=== PATIENT | female | born 2005 | race Caucasian/White ===

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

== ENCOUNTER 2024-09-14 07:30 | Outpatient (RCR) | payer MEDICAID, SELFPAY ==
--- NOTE | 2024-08-12 10:28 | OT.OPODN ---
OT Outpatient Ortho Daily Note OT Outpatient Ortho Daily Note* Start: 05/19/24 07:10 Freq: Status: Active Protocol: Document 08/12/24 08:43 AMB (Rec: 08/12/24 10:27 AMB [id number]) E-signed By Joy Jameson, OTR/L, CLT, BIOLOGY RESEARCH ASSISTANT Type of Note Type of Note Type of Note Daily Note,Recert/Progress Note Visit Number 10 Insurance Information Insurance UC[employer] Information Insurance Cert Due 08/17/24 Information Comments Outpatient History/Precautions Current Condition/Medical Diagnosis Referring Provider Dr Clark Medical Diagnoses S62.024 RUE Scaphoid Fracture Treatment Diagnosis R53.1 Weakness RUE M25.631 Stiffness RUE wrist Date of Onset 01/30/25 Medical Conditions Depression,Respiratory Other Conditions Anxiety, ADHD Medical/Functional History Medical History Yes Reviewed Prior Level of Prior to onset of scaphoid fx, pt had full, pain-free Function/Mobility use of her RUE. 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 Pt now has pain with resisted wrist flexion and NOT with resisted wrist extension, also has pain with resisted RD which limits her ability to fully participate in her gym/lifting activities and with lifting/carrying her computer or other heavy items. She rates pain at volar wrist at 3/10, occasional pain in dorsal wrist 2/10. Pt feels therapy has and continues to be helpful as she has less pain following her OT sessions. Pt is hoping that now that she is on summer break, she will have more time to devote to her HEP. OT OP Daily Ortho Note/Assessment Therapeutic Exercise Therapeutic Exercise 08/09/24 Completed wrist strengthening with green TB for Comments wrist flex, ext, and RD 10 reps each, issued green TB for use at home as well. 05/26/24 Provided training and practice in HEP for resisted wrist flex, ext, and RD with red TB. Following demo, pt is able to complete 10 reps of the exs with minimal cues. Pt was provided TB and written instructions for use at home. 05/19/24 Pt was provided training and practice in the following exs. Pt completed 10 reps of each with minimal cues. She was provided with written instructions and teal putty for use at home: Access Code: [email or web address] URL: [email or web address] Date: 05/19/2024 Prepared by: Ana Jameson Exercises - Wrist extensor stretch - 4 x daily - 7 x weekly - 1 sets - 10 reps - 20sec hold - Wrist stretch - 4 x daily - 7 x weekly - 1 sets - 4 reps - 20sec hold - Combo Wrist Stretch - 4 x daily - 7 x weekly - 1 sets - 10 reps - 20sec hold - Seated Wrist Flexion Stretch - 4 x daily - 7 x weekly - 1 sets - 3 reps - 20-30 seconds hold - Seated Wrist Prayer Stretch - 4 x daily - 7 x weekly - 1 sets - 10 reps - 20 sec hold - Tip Pinch with Putty - 2 x daily - 7 x weekly - 1 sets - 10 reps - Dobbins Pinch with Putty - 2 x daily - 7 x weekly - 1 sets - 10-20 reps - Putty Squeezes - 2 x daily - 7 x weekly - 1 sets - 10-20 reps Manual Therapy Manual Therapy 24 Minutes (minutes) Manual Therapy Provided MT with focus on deep STM with MFR to the Comments dorsal forearm and wrist for mm relaxation and release of adhesions in order to promote improved blood flow and increased ROM. TFM over the APL and EPB noting improvement this week in tendon glide and less pain with palpation of these tendons. IASTM with Graston tool in order to promote healing breakdown of scar tissue, reduce adhesions and decrease facial restrictions as well as promoting blood flow and decreased inflammation. Completed wrist joint mobilizations for stretch and mobilization of carpal bones/ligaments. Ultrasound Ultrasound Minutes ( 10 minutes) Ultrasound Location RUE dorsal wrist and forearm for anti-inflammatory and & Joint Position circulatory benefit. Ultrasound Frequency 1 MHz Pulsed & Mode Intensity (w/cm2) 1.5 Iontophoresis Iontophoresis 8 Minutes (minutes) Iontophoresis Radial right wrist for anti-inflammatory benefit in Location order to promote pain reduction and healing. Iontophoresis Extended Wear Patch,Dexamethasone,Instruction In Treatment Parameters Removal,Instruction In Rationale,Instruct Desired & Rational/Set Up Response Splinting Splinting Minutes ( 7 minutes) Splinting Comments Question if pt is experiencing irritation of the APL/ EPB tendons, pt was provided with a semi-custom wrist based thumb spica splint to provide support / rest to this area. Total Occupational Therapy Time Occupational Therapy 42 Minutes Home Program Home Program Home Program Compliant Home Program 06/24/24 Advanced HEP to 3# resistance vs RTB, added Specifics resisted pro/sup as well. 05/26/24 Added resisted wrist flex, ext, and RD with red TB 05/19/24 Pt was provided training and practice in the following exs. Pt completed 10 reps of each with minimal cues. She was provided with written instructions and teal putty for use at home: Access Code: [email or web address] URL: [email or web address] Date: 05/19/2024 Prepared by: Ana Jamseon Exercises - Wrist extensor stretch - 4 x daily - 7 x weekly - 1 sets - 10 reps - 20sec hold - Wrist stretch - 4 x daily - 7 x weekly - 1 sets - 4 reps - 20sec hold - Combo Wrist Stretch - 4 x daily - 7 x weekly - 1 sets - 10 reps - 20sec hold - Seated Wrist Flexion Stretch - 4 x daily - 7 x weekly - 1 sets - 3 reps - 20-30 seconds hold - Seated Wrist Prayer Stretch - 4 x daily - 7 x weekly - 1 sets - 10 reps - 20 sec hold - Tip Pinch with Putty - 2 x daily - 7 x weekly - 1 sets - 10 reps - Dobbins Pinch with Putty - 2 x daily - 7 x weekly - 1 sets - 10-20 reps - Putty Squeezes - 2 x daily - 7 x weekly - 1 sets - 10-20 reps Goniometric Comments Goniometric Comments Goniometric Comments 08/12/24 AROM and strength of BUE is WNL throughout with the exception of RUE wrist, which is as follows: Flexion: 95 on RUE vs 95 on LUE with MMT 5-/5 pain with resisted flexion Extension: 80 on the RUE vs 80 on the LUE with MMT 5-/5 No pain with resistance UD: 40 on the RUE vs 40 on the LUE with MMT 5/5 No pain with resistance RD: 25 on the RUE vs 25 on the LUE with MMT 5-/5 Discomfort with resistance Hand Pinch/Commercial Coordinator Strength Hand Pinch/Commercial Coordinator Strength Hand Pinch/Commercial Coordinator Left Hand,Right Hand Strength Left Hand Commercial Coordinator Strength 110 Position 1 in Elbow Flexion (lbs) Lateral Pinch 20 Strength (lbs) Three Point Pinch ( 21 lbs) Right Hand Commercial Coordinator Strength 100 Position 1 in Elbow Flexion (lbs) Lateral Pinch 20 Strength (lbs) Three Point Pinch ( 20 lbs) Comments Comments 08/12/24 Pt still has pain with vest presser and pinch strength testing, pain is on radial wrist, occasionally dorsal wrist but worse on the volar/radial wrist. OT Objective Data Hand Hand Dominance Right Observations/Posture/Limb Appearance Objective 05/19/24 No deformity noted in RUE, no obvious swelling, Observations no bruising or discoloration. OT Problems Problems Problems Decreased Range of Motion,Pain,Lifting,Gripping, Pinching Other Problems Writing,Opening Containers,Computer Patient Potential Good Assessment Assessment Assessment Pt now demonstrates full, pain-free AROM of her RUE wrist, however, she does have pain with resisted wrist flexion and RD. Pt also demonstrates a 35# increase in right vest presser strength, 4# increased in lateral pinch strength, and 3# increase in 3pt pinch, however, she is still having discomfort with strength testing. Pt also continues to have pain with weight lifting, specifically shoulder press / squats with bar maddox. Currently, pain appears to be associated with activation of the APL and EPB as resistance to these areas increase pain. Initially, pain was associated specifically to dorsal wrist. Pt feels she is still progressing and would like to continue with therapy. Pt will benefit from skilled OT intervention to address residual pain in her wrist. Occupational Therapy Treatment Plan - OP Potential Rehabilitation Good Potential Set Goals Goals Set with Yes Patient Goals Goals Goals reviewed on 08/12/24: 1. Pt will be independent and compliant with HEP in order to resume full, pain-free use of the involved UE. 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 2. Pt will demonstrate full, pain-free AROM of the involved UE in order to improve ability to grasp and hold. 6 weeks This goal has been met, 3. Pt will demonstrate pain-free vest presser and pinch strength comparable to the uninvolved side in order to improve functional grasp, hold, reach, and lifting ability needed to complete self-care, leisure tasks, and work activities. 8 weeks. This goal was met, pt has significant improvement in strength, however, pt is now having pain with testing. Treatment Plan Treatment Plan Evaluation,Edema Control,Joint Mobilization,Manual Therapy,Splinting,Ultrasound,Wound Care/Scar Management ,Therapeutic Exercise,Therapeutic Activities,Self Care/ Home Management,Education Expected Frequency 1-2x Week Expected Duration 6-8 Weeks Occupational Therapy Billing Units Treatment Minutes Untimed Treatment 7 Minutes Timed Treatment 42 Minutes Total Treatment 49 Minutes Billing Units Iontophoresis 1 Manual Therapy 1 Ultrasound 1 Certification Statement Certification Statement I Certify That: Therapy Services Provided,Therapy Plan Established, Therapy Plan Reviewed Recertification Information Recertification Information Initial 05/19/24 Certification Date Recertification 08/12/24 Start Date Recertification Due 11/10/24 Date Reasons to Continue She has been seen for a total of 10 visits. Pt has met Skilled Therapy or nearly met her goals. Pt has less intense, but persistent pain in her LUE, pain is now more on the volar/radial wrist and occasionally on the dorsal wrist . Pt is still limited in her ability to participate fully in her gym routine as is painful for her to complete shoulder press and squats with bar maddox. Pt feels benefit following therapy session, states her pain upon arrival averages 4/10, following is 2-3/10 and lasts for a couple of days. Rehabilitation Good Potential Click To Default ' Per treatment plan Per treatment plan' Continued Plan of Per treatment plan Care and Interventions Provider Signature Yes Required Provider Signature POC & Medical Necessity Shows Agreement With Physician NPI Number Write NPI# Here Physician Comment/ Comment or Changes Change Physician Signature Please Sign/Date Here & Date Requested
== END 2025-01-12 23:59 | disposition home or self-care (01) ==
PROVIDERS: PCP Student in an Organized Health Care Education/Training Program; Visit Provider Student in an Organized Health Care Education/Training Program
DX: S62.024D Nondisplaced fracture of middle third of navicular [scaphoid] bone of right wrist, subsequent encounter for fracture with routine healing (principal); Z51.89 Encounter for other specified aftercare
CPT/HCPCS: 97033; 97035; 97110; 97140; 97165; X5282